=== PATIENT | male | born 1970 | race Caucasian/White ===

== ENCOUNTER 2016-10-20 10:04 | Emergency (ER) | payer SELFPAY ==
[2016-10-20 10:28] VITALS: BP 125/84
[2016-10-20] MEDS ORDERED: ASPIRIN 81 MG TABLET, CHEWABLE PO ONE (10:32)
[2016-10-20 11:10] LABS: ABSOLUTE EOSINOPHILS # (AUTO) 0.1 10^3/uL (0.0-0.6); ABSOLUTE LYMPHOCYTES (AUTO) 2.2 10^3/uL (0.5-4.7); ABSOLUTE MONOCYTES (AUTO) 0.8 10^3/uL (0.1-1.4); ABSOLUTE NEUT (AUTO) 6.7 10^3/uL (1.7-8.2); BASOPHILS % (AUTO) 0.5 % (0-2); EOSINOPHILS % (AUTO) 0.7 % (0-6); HEMATOCRIT 40.2 % (37.9-51.0); HEMOGLOBIN 13.4 g/dL (13.5-17.0); MEAN CORPUSCULAR HEMOGLOBIN 28.2 pg (27.0-33.4); MEAN CORPUSCULAR HGB CONC 33.3 g/dL (32.0-36.0); MEAN CORPUSCULAR VOLUME 85 fl (80-97); MONOCYTES % (AUTO) 8.5 % (3-13); RED BLOOD COUNT 4.75 10^6/uL (4.35-5.55); RED CELL DISTRIBUTION WIDTH 17.5 % (11.5-14.0); SEGMENTED NEUTROPHILS % (AUTO) 68.3 % (42-78); WHITE BLOOD COUNT 9.9 10^3/uL (4.0-10.5)
[2016-10-20 11:28] LABS: ALANINE AMINOTRANSFERASE 25 U/L (21-72); ALBUMIN 3.8 g/dL (3.5-5.0); ALKALINE PHOSPHATASE 110 U/L (38-126); ANION GAP 9 (5-19); ASPARTATE AMINO TRANSFERASE 18 U/L (17-59); BILIRUBIN,TOTAL 0.4 mg/dL (0.2-1.3); BLOOD UREA NITROGEN 16 mg/dL (7-20); CALCIUM 9.8 mg/dL (8.4-10.2); CARBON DIOXIDE 38 mmol/L (22-30); CHLORIDE 96 mmol/L (98-107); CREATINE KINASE 58 U/L (55-170); CREATININE RESULT 1.26 mg/dL (0.52-1.25); GLUCOSE 99 mg/dL (75-110); POTASSIUM 3.6 mmol/L (3.6-5.0); SODIUM 142.8 mmol/L (137-145); TOTAL PROTEIN 7.2 g/dL (6.3-8.2)
[2016-10-20 11:40] LABS: CREATINE KINASE MB < 0.22 ng/mL (<4.55); TROPONIN I < 0.012 ng/mL
--- NOTE | 2016-10-20 13:51 | ER Document Report ---
Doctor's Note Notes: 10/20/16 13:50 Been informed by nursing staff the patient has left emergency department. EKG which is on the chart shows a sinus rhythm and incomplete right bundle branch block not significantly changed from 12/07/2014. There was no contact by this physician with the patient prior to his departure
--- NOTE | 2016-10-20 20:04 | EKG REPORT ---
SEVERITY:- ABNORMAL ECG - SINUS RHYTHM INCOMPLETE RIGHT BUNDLE BRANCH BLOCK : Confirmed by: Shawnee Razo 20-Oct-2016 20:04:15
== END 2016-10-20 13:54 | disposition left against medical advice (07) ==
LOC: ER 10:04
DX: Z53.21 Procedure and treatment not carried out due to patient leaving prior to being seen by health care provider (principal)
CPT/HCPCS: 36415; 71010; 80053; 82550; 82553; 84484; 85025; 93005; 93010

== ENCOUNTER 2017-09-23 11:45 | Emergency (ER) | payer SELFPAY ==
[2017-09-23] MEDS ORDERED: KETOROLAC TROMETHAMINE INJ/PF 30 MG/1 ML SDV IV ONE (12:55)
[2017-09-23] MEDS ORDERED: ONDANSETRON HCL INJ/PF 4 MG/2 ML SDV IV ONE (12:55)
[2017-09-23] MEDS ORDERED: MORPHINE SULFATE 10 MG/ML INJ IV ONE ×2 (12:55→15:49)
[2017-09-23 13:50] LABS: AMORPHOUS SEDIMENT,URINE TRACE /HPF; APPEARANCE,URINE SLIGHTLY-CLOUDY; BILIRUBIN,URINE NEGATIVE (NEGATIVE); COLOR,URINE YELLOW; GLUCOSE, URINE NEGATIVE (NEGATIVE); KETONES,URINE NEGATIVE (NEGATIVE); LEUKOCYTE ESTERASE,URINE NEGATIVE (NEGATIVE); NITRITE,URINE NEGATIVE (NEGATIVE); PROTEIN,URINE NEGATIVE (NEGATIVE); URINE SPECIFIC GRAVITY 1.009; UROBILINOGEN,URINE NEGATIVE mg/dL (<2.0)
[2017-09-23 14:12] LABS: ABSOLUTE LYMPHOCYTES (AUTO) 1.4 10^3/uL (0.5-4.7); ABSOLUTE MONOCYTES (AUTO) 0.7 10^3/uL (0.1-1.4); BASOPHILS % (AUTO) 0.4 % (0-2); EOSINOPHILS % (AUTO) 0.5 % (0-6); HEMOGLOBIN 10.1 g/dL (13.5-17.0); MEAN CORPUSCULAR HEMOGLOBIN 27.1 pg (27.0-33.4); MEAN CORPUSCULAR HGB CONC 32.5 g/dL (32.0-36.0); MEAN CORPUSCULAR VOLUME 83 fl (80-97); MONOCYTES % (AUTO) 7.2 % (3-13); PLATELET COUNT 542 10^3/uL (150-450); RED BLOOD COUNT 3.71 10^6/uL (4.35-5.55); RED CELL DISTRIBUTION WIDTH 17.8 % (11.5-14.0); SEGMENTED NEUTROPHILS % (AUTO) 77.9 % (42-78); TOTAL CELLS COUNTED % (AUTO) 100 %; WHITE BLOOD COUNT 10.2 10^3/uL (4.0-10.5)
[2017-09-23 14:34] LABS: ALANINE AMINOTRANSFERASE 22 U/L (21-72); ALBUMIN 4.7 g/dL (3.5-5.0); ALKALINE PHOSPHATASE 100 U/L (38-126); ANION GAP 12 (5-19); ASPARTATE AMINO TRANSFERASE 22 U/L (17-59); BILIRUBIN,DIRECT 0.3 mg/dL (0.0-0.4); BILIRUBIN,TOTAL 0.4 mg/dL (0.2-1.3); BLOOD UREA NITROGEN 13 mg/dL (7-20); CARBON DIOXIDE 37 mmol/L (22-30); CHLORIDE 95 mmol/L (98-107); GLUCOSE 103 mg/dL (75-110); POTASSIUM 3.5 mmol/L (3.6-5.0); SODIUM 143.5 mmol/L (137-145); TOTAL PROTEIN 7.8 g/dL (6.3-8.2)
[2017-09-23 14:46] LABS: CALCIUM 13.1 mg/dL (8.4-10.2)
[2017-09-23] MEDS ORDERED: NORMAL SALINE 1000 ML 1,000 ML IV ONE (14:47)
--- NOTE | 2017-09-23 15:24 | RADIOLOGY REPORT (SQ) ---
EXAM DESCRIPTION: U/S ABDOMEN LIMITED W/O DOP COMPLETED DATE/TIME: 09/23/2017 2:55 pm REASON FOR STUDY: ruq pain COMPARISON: CT abdomen pelvis 12/07/2014 Abdominal ultrasound 12/07/2014 TECHNIQUE: Dynamic and static grayscale images acquired of the abdomen and recorded on PACS. Additio nal selected color Doppler and spectral images recorded. LIMITATIONS: Midline bowel gas FINDINGS: PANCREAS: Not well seen LIVER: No masses. Echotexture normal. LIVER VASCULATURE: Normal directional flow of the main portal vein and hepatic veins. GALLBLADDER: No stones. Normal wall thickness. No pericholecystic fluid. ULTRASOUND-DETECTED WHITT'S SIGN: Negative. INTRAHEPATIC DUCTS AND COMMON DUCT: CBD and intrahepatic ducts normal caliber. No filling defects. D istal most common duct not well seen due to duodenum gas INFERIOR VENA CAVA: Normal flow. AORTA: Not well seen RIGHT KIDNEY: 11.4 cm in length. No hydronephrosis. No cysts or masses. Tiny intrarenal stones se en on CT 12/07/2014 are not identified. Mild cortical thinning right upper pole kidney PERITONEAL AND RIGHT PLEURAL SPACE: No ascites or effusions. OTHER: No other significant findings. IMPRESSION: No gallstones, gallbladder wall thickening or pericholecystic fluid. TECHNICAL DOCUMENTATION: JOB ID: [id number] [employer]- All Rights Reserved
--- NOTE | 2017-09-23 16:18 | ER Document Report ---
ED General - General Mode of Arrival: Ambulatory Information source: Patient TRAVEL OUTSIDE OF THE [place] IN LAST 30 DAYS: No <IMELDA WALTERS - Last Filed: 09/23/17 18:58> <GENOVEVA CHRISTINA - Last Filed: 09/24/17 11:00> - General Chief Complaint: Abdominal Pain Stated Complaint: STOMACH PAIN Time Seen by Provider: 09/23/17 12:54 Notes: Patient is a 47 year old male presenting to the emergency department complaining of abdominal pain onset a couple of months ago. Patient states that the pain has been intermittent which has worsened today. Patient describes the pain as sharp diffusely across his abdomen. Patient states that he has noticed some black tarry stool. Patient states he is currently taking Prilosec. (IMLEDA WALTERS) - Related Data Allergies/Adverse Reactions: tramadol [Tramadol] Allergy (Verified 10/20/16 10:32) Past Medical History - General Information source: Patient - Social History Smoking Status: Current Some Day Smoker Frequency of alcohol use: None Drug Abuse: None Family History: Reviewed & Not Pertinent Patient has suicidal ideation: No Patient has homicidal ideation: No - Past Medical History Cardiac Medical History: Reports: Hx Hypertension Renal/ Medical History: Reports: Hx Kidney Stones GI Medical History: Reports: Hx Ulcer - Immunizations Hx Diphtheria, Pertussis, Tetanus Vaccination: Yes <IMELDA WALTERS - Last Filed: 09/23/17 18:58> Review of Systems - Review of Systems Constitutional: No symptoms reported EENT: No symptoms reported Cardiovascular: No symptoms reported Respiratory: No symptoms reported Gastrointestinal: See HPI, Abdominal pain Genitourinary: No symptoms reported Male Genitourinary: No symptoms reported Musculoskeletal: No symptoms reported Skin: No symptoms reported Hematologic/Lymphatic: No symptoms reported Neurological/Psychological: No symptoms reported -: Yes All other systems reviewed and negative <IMELDA WALTERS - Last Filed: 09/23/17 18:58> Physical Exam <IMELDA WALTERS - Last Filed: 09/23/17 18:58> <GENOVEVA CHRISTINA - Last Filed: 09/24/17 11:00> - Vital signs Vitals: Temp Pulse Resp BP Pulse Ox 98.5 F 91 18 184/101 H 100 09/23/17 11:55 09/23/17 11:55 09/23/17 11:55 09/23/17 11:55 09/23/17 11:55 - Notes Notes: GENERAL: Alert, interacts well. No acute distress. HEAD: Normocephalic, atraumatic. EYES: Appear normal. Pupils equal, round, and reactive to light. ENT: Moist mucus membranes, tongue midline. NECK: Full range of motion. Supple. Trachea midline. LUNGS: Clear to auscultation bilaterally, no wheezes, rales, or rhonchi. No respiratory distress. HEART: Regular rate and rhythm. No murmurs, gallops, or rubs. ABDOMEN: Soft, diffuse abdominal tenderness to palpation . Non-distended. Normal bowel sounds. EXTREMITIES: Moves all 4 extremities spontaneously. Normal strength. No edema. NEUROLOGICAL: Alert and oriented x3. Normal speech. PSYCH: Normal affect, normal mood. SKIN: Warm, dry, normal turgor. No rashes or lesions noted. RECTAL: Hard stool, no blood in stool. (IMELDA WALTERS) Course - Laboratory Result Diagrams: 09/23/17 13:52 09/23/17 13:52 <IMELDA WALTERS - Last Filed: 09/23/17 18:58> - Laboratory Result Diagrams: 09/23/17 13:52 09/23/17 13:52 <GENOVEVA CHRISTINA - Last Filed: 09/24/17 11:00> - Re-evaluation Re-evalutation: 09/23/17 18:13 Discussed lab findings with patient including hypercalcemia and need to [facility] with [facility] for further evaluation and workup. Patient will be placed on Zantac and Maalox for his intermittent chronic epigastric discomfort. I am concerned with his hypercalcemia and being a smoker that if his parathyroid hormone workup and kidney workup are normal that he will need to be screened for malignant causes. Return precautions were provided to he and his family regarding any alternation in mental status he would need to immediately. (GENOVEVA CHRISTINA) - Vital Signs Vital signs: Temp Pulse Resp BP Pulse Ox 97.8 F 86 16 196/113 H 98 09/23/17 18:44 09/23/17 18:44 09/23/17 18:44 09/23/17 18:44 09/23/17 18:44 - Laboratory Laboratory results interpreted by me: 09/23/17 09/23/17 13:52 13:52 RBC 3.71 L Hgb 10.1 L Hct 31.0 L RDW 17.8 H Plt Count 542 H Potassium 3.5 L Chloride 95 L Carbon Dioxide 37 H Creatinine 1.27 H Calcium 13.1 H* Discharge <IMELDA WALTERS - Last Filed: 09/23/17 18:58> <GENOVEVA CHRISTINA - Last Filed: 09/24/17 11:00> - Discharge Clinical Impression: Hypercalcemia GERD (gastroesophageal reflux disease) Qualifiers: Esophagitis presence: esophagitis presence not specified Qualified Code(s): K21.9 - Gastro-esophageal reflux disease without esophagitis Condition: Good Disposition: HOME, SELF-CARE Instructions: Abdominal Pain ([facility]) Additional Instructions: Please follow-up with primary care referral provided for further workup of your high calcium levels. You will need to return to the emergency department immediately if symptoms worsen or if you begin to have any alteration in her mental status as this could be a side effect of high calcium levels. Also please follow-up within a week with primary care referral to see if medications provided are helping with your epigastric discomfort Prescriptions: Bismuth Subsalicylate [Maalox] 1 dose PO DAILY PRN #1 bottle PRN Reason: Ranitidine HCl [Zantac] 150 mg PO BID #60 tablet Scribe Attestation: 09/24/17 11:00 I personally performed the services described in the documentation, reviewed and edited the documentation which was dictated to describe my presence, and it accurately records my words and actions (GENOVEVA CHRISTINA) Scribe Documentation - Scribe Written by Trevor:: Trevor Marquez, 09/23/2017 16:19 acting as scribe for :: Hernando <IMELDA WALTERS - Last Filed: 09/23/17 18:58>
[2017-09-23] MEDS ORDERED: HYDROCODONE/ACETAMINOPHEN 5-325 MG (6 TAB/ER DISP) PO PRN (18:19)
[2017-09-23 18:52] VITALS: BP 196/113
== END 2017-09-23 18:47 | disposition home or self-care (01) ==
LOC: ER 11:45
DX: K21.9 Gastro-esophageal reflux disease without esophagitis (principal); Z79.899 Other long term (current) drug therapy; E83.52 Hypercalcemia; R10.84 Generalized abdominal pain; R19.5 Other fecal abnormalities; F17.200 Nicotine dependence, unspecified, uncomplicated; I10 Essential (primary) hypertension; Z87.442 Personal history of urinary calculi; Z88.5 Allergy status to narcotic agent
CPT/HCPCS: 96376; 99284; 96361; 96374; 96375; 36415; 83690; 85025; 82272; 80053; 81001; 76705; J1885; J2270; J2405; J7030

== ENCOUNTER 2017-09-27 10:30 | Emergency (ER) | payer SELFPAY ==
[2017-09-27] MEDS ORDERED: ONDANSETRON HCL INJ/PF 4 MG/2 ML SDV IV ONE (11:15)
[2017-09-27] MEDS ORDERED: MORPHINE SULFATE 10 MG/ML INJ IV ONE ×2 (11:15→12:02)
--- NOTE | 2017-09-27 11:26 | ER Document Report ---
ED GI/ - General Chief Complaint: Abdominal Pain Stated Complaint: ABDOMINAL PAIN Time Seen by Provider: 09/27/17 11:05 Notes: Patient is complaining of pain in his "stomach and back" off and on for the past month. His pain is worsened recently and he was seen here in this emergency department Thursday. He says he had an ultrasound and some other tests done. He says the pain is increased since his visit. On , he vomited a large amount of blood once, but has not vomited anymore since then. On Thursday, he says he was passing some reddish brown loose bowel movements several times. At this time he only sees what appears to be some reddish flecks in his stools. He has noted some burning with urination. Has not had any fever. Patient had surgery in 2010 for an ulcer. He had a scope procedure done at [facility] about 8 months ago. Denies a history of pancreatitis. Denies history of alcohol intake. Does have a history of GERD. TRAVEL OUTSIDE OF THE [place] IN LAST 30 DAYS: No - Related Data Allergies/Adverse Reactions: tramadol [Tramadol] Allergy (Verified 09/27/17 10:55) Past Medical History - Social History Smoking Status: Current Every Day Smoker Chew tobacco use (# tins/day): No Frequency of alcohol use: None Drug Abuse: None Family History: Reviewed & Not Pertinent Patient has suicidal ideation: No Patient has homicidal ideation: No - Past Medical History Cardiac Medical History: Reports: Hx Hypertension Denies: Hx Coronary Artery Disease Endocrine Medical History: Denies: Hx Diabetes Mellitus Type 1, Hx Diabetes Mellitus Type 2 Renal/ Medical History: Reports: Hx Kidney Stones GI Medical History: Reports: Hx Gastroesophageal Reflux Disease, Hx Ulcer Past Surgical History: Reports: Hx Abdominal Surgery - For ulcer in 2010. - Immunizations Hx Diphtheria, Pertussis, Tetanus Vaccination: Yes Review of Systems - Review of Systems Notes: REVIEW OF SYSTEMS: CONSTITUTIONAL : Denies fever. EENT: Denies eye, ear, nose or mouth or throat pain or other symptoms. CARDIOVASCULAR: Denies chest pain. RESPIRATORY: Denies cough, chest congestion, or shortness of breath. GASTROINTESTINAL: See HPI. GENITOURINARY: Has noted some burning with urination, but otherwise no blood in urine, no difficulty urinating, MUSCULOSKELETAL: Denies back or neck pain. Denies joint pain or swelling. SKIN: Denies rash or skin lesions. NEUROLOGICAL: Denies LOC or altered mental status. Denies headache. Denies sensory loss or motor deficits. ALL OTHER SYSTEMS REVIEWED AND NEGATIVE. Physical Exam - Vital signs Vitals: Temp Resp BP Pulse Ox 97.7 F 22 H 138/82 H 96 09/27/17 10:36 09/27/17 10:36 09/27/17 10:36 09/27/17 10:36 Interpretation: Normal - Notes Notes: PHYSICAL EXAMINATION: GENERAL: Appears to be uncomfortable. Vital signs are all normal.. HEAD: Atraumatic, normocephalic. EYES: Pupils equal round and reactive to light, extraocular movements intact. NECK: Normal range of motion, supple. LUNGS: Breath sounds clear and equal bilaterally. HEART: Regular rate and rhythm without murmurs. ABDOMEN: Tender in the midepigastric region with some guarding. No rebound. No masses felt. No bruits heard. No lower half of the abdomen tenderness. Rectal exam is unremarkable. Patient has minimal fecal material on the glove that appears to be yellow or yellow brown in color. Guaiac sent. BACK: No tenderness throughout entire back. EXTREMITIES: Normal range of motion without pain. NEUROLOGICAL: Normal speech, normal gait. Normal sensory, motor, and reflex exams. Awake, alert, and oriented x3. Cranial nerves normal. PSYCH: Normal mood, normal affect. SKIN: Warm, dry, no rashes. Course - Re-evaluation Re-evalutation: 09/27/17 11:59 Patient says no relief from his pain. He got up to stand and urinate and says the pain is worse. 09/27/17 13:20 Patient's labs returning show a hemoglobin of 5.8, compared to 10.1 when he was here 4 days ago. Patient's stool for guaiac was positive today. His potassium is 2.9 today. Also, patient's troponin is 0.138. His EKG shows a right bundle branch block, but it was there on previous EKG done last October. Otherwise, his EKG does not show anything that is suggestive of a cardiac injury pattern. I contacted the surgeon, Dr. Montoya, extraction machine operator, to make him aware of the patient and discuss further workup. We are getting some x-rays and a CT scan with oral and IV contrast. Blood has been ordered for the patient to receive 2 units of packed cells. Further pain medications were given. 09/27/17 17:04 Patient has received 1-1/2 units of blood so far. He has required continuing IV pain medications. Patient CT scan showed extreme thickening of the mucosa of the antrum of the stomach, concerning for possible inflammatory disease versus ulcer versus cancer. Based upon patient's findings, it was felt that he will need to be transferred to a higher level of care. I contacted [facility] they said that they will not have beds for another 2-3 days. I contacted [facility] who accepted the patient in transfer. A bed assignment has been obtained. Patient's vital signs remained stable for transfer. Major areas of concern is Upper GI bleed, unknown source troponin slightly elevated at 0.138 with a repeat of 0.14. Potassium 2.9. Receiving D5 and one half normal saline with 40 mEq of KCl at 200 mL/h. Arrangements for transport are being made. - Vital Signs Vital signs: Temp Pulse Resp BP Pulse Ox 98 F 70 14 170/101 H 100 09/27/17 18:37 09/27/17 18:15 09/27/17 18:37 09/27/17 18:37 09/27/17 18:30 - Laboratory Result Diagrams: 09/27/17 10:35 09/27/17 10:35 Laboratory results interpreted by me: 09/27/17 09/27/17 09/27/17 10:35 10:35 10:35 RBC 2.14 L Hgb 5.8 L Hct 17.6 L RDW 18.1 H Plt Count 454 H Potassium 2.9 L* Chloride 96 L Carbon Dioxide 33 H Creatinine 1.33 H Est GFR (Non-Af Amer) 58 L Calcium 10.5 H Total Bilirubin < 0.1 L ALT 13 L Crossmatch See Detail - Diagnostic Test Radiology reviewed: Image reviewed, Reports reviewed - CT scan of the patient's abdomen revealed thickened area of the antrum of the stomach that could indicate inflammatory response, ulcer, or cancer. Gastroscopy recommended. - EKG Interpretation by Ct EKG shows normal: Sinus rhythm Rate: Normal [place]/QRS: RBBB - Seen on previous EKGs, as well. Voltage: Increased voltage Additional EKG results interpreted by me: 09/27/17 18:58 EKG shows no evidence of STEMI or any other acute process. No significant change from EKG done previously. Critical Care Note - Critical Care Note Total time excluding time spent on procedures (mins): 100 Discharge - Discharge Clinical Impression: Upper GI bleeding, Elevated troponin level, Hypokalemia Condition: Fair Disposition: [facility]
[2017-09-27 11:46] LABS: ABSOLUTE EOSINOPHILS # (AUTO) 0.2 10^3/uL (0.0-0.6); ABSOLUTE LYMPHOCYTES (AUTO) 2.8 10^3/uL (0.5-4.7); ABSOLUTE MONOCYTES (AUTO) 0.9 10^3/uL (0.1-1.4); ABSOLUTE NEUT (AUTO) 5.6 10^3/uL (1.7-8.2); BASOPHILS % (AUTO) 0.4 % (0-2); EOSINOPHILS % (AUTO) 2.1 % (0-6); HEMATOCRIT 17.6 % (37.9-51.0); LYMPHOCYTES % (AUTO) 29.5 % (13-45); MEAN CORPUSCULAR HGB CONC 32.8 g/dL (32.0-36.0); MEAN CORPUSCULAR VOLUME 82 fl (80-97); MONOCYTES % (AUTO) 9.1 % (3-13); PLATELET COUNT 454 10^3/uL (150-450); RED BLOOD COUNT 2.14 10^6/uL (4.35-5.55); RED CELL DISTRIBUTION WIDTH 18.1 % (11.5-14.0); SEGMENTED NEUTROPHILS % (AUTO) 58.9 % (42-78); TOTAL CELLS COUNTED % (AUTO) 100 %; WHITE BLOOD COUNT 9.6 10^3/uL (4.0-10.5)
[2017-09-27 11:54] LABS: ALANINE AMINOTRANSFERASE 13 U/L (21-72); ALBUMIN 3.7 g/dL (3.5-5.0); ALKALINE PHOSPHATASE 65 U/L (38-126); ANION GAP 13 (5-19); ASPARTATE AMINO TRANSFERASE 18 U/L (17-59); BLOOD UREA NITROGEN 17 mg/dL (7-20); CALCIUM 10.5 mg/dL (8.4-10.2); CARBON DIOXIDE 33 mmol/L (22-30); CHLORIDE 96 mmol/L (98-107); GLUCOSE 101 mg/dL (75-110); LIPASE 85.7 U/L (23-300); SODIUM 141.8 mmol/L (137-145); TOTAL PROTEIN 6.3 g/dL (6.3-8.2)
[2017-09-27 11:54] LABS: APPEARANCE,URINE SLIGHTLY-CLOUDY; BILIRUBIN,URINE NEGATIVE (NEGATIVE); COLOR,URINE STRAW; GLUCOSE, URINE NEGATIVE (NEGATIVE); KETONES,URINE NEGATIVE (NEGATIVE); LEUKOCYTE ESTERASE,URINE NEGATIVE (NEGATIVE); NITRITE,URINE NEGATIVE (NEGATIVE); PROTEIN,URINE NEGATIVE (NEGATIVE); URINE SPECIFIC GRAVITY 1.006; UROBILINOGEN,URINE NEGATIVE mg/dL (<2.0)
[2017-09-27 11:56] LABS: BILIRUBIN,TOTAL < 0.1 mg/dL (0.2-1.3)
[2017-09-27 12:00] LABS: HEMOGLOBIN 5.8 g/dL (13.5-17.0); POTASSIUM 2.9 mmol/L (3.6-5.0)
[2017-09-27] MEDS ORDERED: NORMAL SALINE 250 ML IV PRN (12:04)
[2017-09-27] MEDS ORDERED: POTASSI CL 40 MEQ/D5-1/2NS 1L 40 MEQ/1,000 ML RTUINJ IV ONE ×2 (12:05→18:48)
[2017-09-27 12:06] LABS: URINE AMPHETAMINES SCREEN NEGATIVE; URINE BARBITURATES SCREEN NEGATIVE; URINE BENZODIAZEPINES SCREEN NEGATIVE; URINE COCAINE SCREEN NEGATIVE; URINE MARIJUANA (THC) SCREEN NEGATIVE; URINE METHADONE SCREEN NEGATIVE; URINE PHENCYCLIDINE SCREEN NEGATIVE
--- NOTE | 2017-09-27 13:04 | RADIOLOGY REPORT (SQ) ---
EXAM DESCRIPTION: ABDOMEN 2 VIEWS COMPLETED DATE/TIME: 09/27/2017 12:43 pm REASON FOR STUDY: Abdominal pain, Hx ulcer COMPARISON: None. NUMBER OF VIEWS: Two views. TECHNIQUE: Upright and AP supine view. LIMITATIONS: None. FINDINGS: FREE AIR: No pneumoperitoneum. . LUNG BASES: The lung aguilar are clear. The heart is borderline in size with uncoiling thoracic aorta . The pulmonary vasculature is normal. BOWEL GAS PATTERN: Moderate amount of fecal material within the colon consistent with constipation. Minimal small bowel gas. No visceromegaly. CALCIFICATIONS: No suspicious calcifications. SOFT TISSUES: No gross mass or suggestion of organomegaly. HARDWARE: None in the abdomen. BONES: Lumbar spondylosis. OTHER: Chest leads are in place. IMPRESSION: Constipation. TECHNICAL DOCUMENTATION: JOB ID: [id number] 2010 [employer]- All Rights Reserved
--- NOTE | 2017-09-27 13:12 | RADIOLOGY REPORT (SQ) ---
EXAM DESCRIPTION: CHEST SINGLE VIEW COMPLETED DATE/TIME: 09/27/2017 12:43 pm REASON FOR STUDY: Epigastric pain, Hx ulcer, decreasing hemoglobin COMPARISON: 10/20/2016. EXAM PARAMETERS: NUMBER OF VIEWS: Two views. TECHNIQUE: Single frontal radiographic view of the chest acquired. RADIATION DOSE: NA LIMITATIONS: None. FINDINGS: LUNGS AND PLEURA: No infiltrate, masses or pneumothorax. No pleural effusion. MEDIASTINUM AND HILAR STRUCTURES: No masses. Contour normal. HEART AND VASCULAR STRUCTURES: Heart normal in size. Normal vasculature. BONES: No acute findings. HARDWARE: None in the chest. OTHER: Chest leads in place. IMPRESSION: NO ACUTE DISEASE. TECHNICAL DOCUMENTATION: JOB ID: [id number] 2010 [employer]- All Rights Reserved
[2017-09-27] MEDS ORDERED: HYDROMORPHONE HCL INJ/PF 2 MG/ML AMPULE IV ONE ×4 (14:22→19:39)
[2017-09-27] MEDS ORDERED: DIPHENHYDRAMINE HCL 50 MG/ML VIAL IV ONE ×2 (14:23→19:39)
--- NOTE | 2017-09-27 14:26 | RADIOLOGY REPORT (SQ) ---
EXAM DESCRIPTION: CT ABD/PELVIS WITH IV ORAL COMPLETED DATE/TIME: 09/27/2017 1:50 pm REASON FOR STUDY: Epigastric pain, Hx ulcer, ? Perforation Recent drop in hematocrit. COMPARISON: None. TECHNIQUE: CT scan of the abdomen and pelvis performed using helical scanning technique with dynamic intravenous contrast injection. Oral contrast was given. Images reviewed with lung, soft tissue, a nd bone windows. Reconstructed coronal and sagittal MPR images reviewed. Delayed images for evaluatio n of the urinary system also acquired. All images stored on PACS. All CT scanners at this facility use dose modulation, iterative reconstruction, and/or weight based d osing when appropriate to reduce radiation dose to as low as reasonably achievable (ALARA). [facility]: Dose Right [facility]: CareDose [facility]: Dose Right [facility]: Teradose 4D [facility]: [employer] CONTRAST TYPE AND DOSE: contrast/concentration: Isovue 370.00 mg/ml; Total Contrast Delivered: 69.0 ml; Total Saline Delivered: 65.1 ml RENAL FUNCTION: Creatinine 1.3 RADIATION DOSE: CT Rad equipment meets quality standard of care and radiation dose reduction techniq ues were employed. CTDIvol: 4.9 - 5.6 mGy. DLP: 528 mGy-cm.. LIMITATIONS: None. FINDINGS: LOWER CHEST: No significant findings. No nodules or infiltrates. LIVER: Normal size. No masses. No dilated ducts. SPLEEN: Normal size. No focal lesions. PANCREAS: No masses. No significant calcifications. No adjacent inflammation or peripancreatic fluid collections. Pancreatic duct not dilated. GALLBLADDER: No abnormality seen. No intrahepatic biliary dilatation. ADRENAL GLANDS: No significant masses or asymmetry. RIGHT KIDNEY AND URETER: No solid masses. No significant calcifications. No hydronephrosis or hyd roureter. LEFT KIDNEY AND URETER: No solid masses. No significant calcifications. No hydronephrosis or hydr oureter. AORTA AND VESSELS: Atherosclerotic change of infrarenal abdominal aorta and iliac vessels. RETROPERITONEUM: No retroperitoneal adenopathy, hemorrhage or masses. BOWEL AND PERITONEAL CAVITY: Hiatal hernia noted. There is marked thickening of the mucosa distal a ntrum and duodenum region. The possibility of peptic ulcer disease cannot be excluded. Follow-up endoscopy would be a consideration. The antral wall measures 14 mm in thickness. Changes of cons tipation. Minimal colonic diverticulosis. APPENDIX: Normal. PELVIS: Urinary bladder distention. ABDOMINAL WALL: No masses. No hernias. BONES: Spondylolysis at L5 with grade 1 anterolisthesis of L5 on S1. Degenerative disc disease L5-S1 . OTHER: Mesenteric nodes noted at the level of the anti superior mesenteric artery. Small inguinal no kendrick noted. Small nonenlarged periaortic minutes. No pneumoperitoneum identified. IMPRESSION: 1. There is evidence of marked thickening of the mucosa of the antral pyloric region. Inflammatory changes secondary to peptic ulcer disease or malignancy would be a consideration. Endos copy could be useful. 2. Changes consistent with hiatal hernia. 3. Constipation. COMMENT: The case was discussed with Dr. Thomason by phone TECHNICAL DOCUMENTATION: JOB ID: [id number] SC-[id number] Quality ID # [id number]: Final reports with documentation of one or more dose reduction techniques (e.g., Au tomated exposure control, adjustment of the mA and/or kV according to patient size, use of iterative reconstruction technique) 2010 [employer]- All Rights Reserved
[2017-09-27 19:13] LABS: HEMATOCRIT 24.6 % (37.9-51.0); MEAN CORPUSCULAR HEMOGLOBIN 27.6 pg (27.0-33.4); MEAN CORPUSCULAR HGB CONC 32.6 g/dL (32.0-36.0); MEAN CORPUSCULAR VOLUME 85 fl (80-97); PLATELET COUNT 328 10^3/uL (150-450); RED BLOOD COUNT 2.91 10^6/uL (4.35-5.55); RED CELL DISTRIBUTION WIDTH 17.3 % (11.5-14.0); WHITE BLOOD COUNT 8.8 10^3/uL (4.0-10.5)
[2017-09-27 20:01] VITALS: BP 158/96
--- NOTE | 2017-09-28 01:30 | EKG REPORT ---
SEVERITY:- ABNORMAL ECG - SINUS RHYTHM INCOMPLETE RIGHT BUNDLE BRANCH BLOCK BORDERLINE PROLONGED QT INTERVAL : Confirmed by: Dorene Fishman MD 28-Sep-2017 01:29:55
--- NOTE | 2017-09-29 18:50 | EKG REPORT ---
SEVERITY:- ABNORMAL ECG - SINUS RHYTHM INCOMPLETE RIGHT BUNDLE BRANCH BLOCK BORDERLINE PROLONGED QT INTERVAL : Confirmed by: Geoff Latif MD 29-Sep-2017 18:50:05
== END 2017-09-27 20:15 | disposition short-term general hospital (02) ==
LOC: ER 10:30
DX: K92.2 Gastrointestinal hemorrhage, unspecified (principal); R74.8 Abnormal levels of other serum enzymes; E87.6 Hypokalemia; R10.816 Epigastric abdominal tenderness; M54.9 Dorsalgia, unspecified; R30.0 Dysuria; I45.10 Unspecified right bundle-branch block; I10 Essential (primary) hypertension; F17.200 Nicotine dependence, unspecified, uncomplicated; Z87.19 Personal history of other diseases of the digestive system; Z88.5 Allergy status to narcotic agent; Z98.890 Other specified postprocedural states
CPT/HCPCS: 96376; 99291; 99292; 96375; 96365; 96366; 86900; 86901; 36415; 36430; 86850; 80307 ×2; 83690; 85025; 85027; 82272; 80053; 81001; 84484; 86920; 74019; 71045; 74177; 93005 ×2; 93010 ×2; P9016; J3480; J1200; J2270; J1170; J2405; J7050